=== PATIENT | female | born 1965 | race Caucasian/White ===

== ENCOUNTER 2020-09-09 07:34 | Day surgery (SDC) | payer BC ==
[~2020-09-09] VITALS: Ht 154.9 cm; Wt 60.3 kg
[~2020-09-09 07:34] MED LIST: CALCIUM 500 MG1 EAC1 PO; MULTI VITAMIN1 EACH PO
--- NOTE | 2020-09-09 09:09 | NUR ---
09/09/20 0909 Clare Villarreal 0905 PATIENT ARRIVES TO PACU AWAKE BUT VERY DROWSY. SLEEPING WHEN NOT STIMULATED. RESP EVEN AND UNLABORED, OXYGEN OFF ON ARRIVAL. ROOM AIR SATS >93%. PATIENT DENIES PAIN OR NAUSEA WHEN AWAKE.
--- NOTE | 2020-09-10 07:43 | OR ---
[facility] [address], [place] [address] Signed DATE OF OPERATION: 09/09/2020 SURGEON: Jewel Rodriguez MD PREOPERATIVE DIAGNOSIS: Screening. POSTOPERATIVE DIAGNOSES: 1. 3 mm polyp, base of cecum. 2. 3 mm polyp, proximal hepatic flexure. 3. Several diverticula, right colon. 4. Minimal to moderate diverticula left colon. 5. Minimal internal hemorrhoids. PROCEDURE: Colonoscopy with hot biopsy. ESTIMATED BLOOD LOSS: None. INDICATIONS: Annetta is a 55-year-old female asked to see me for her initial screening colonoscopy. She has no lower GI complaints. There is no family history of colon cancer or polyps. In the office, I gave her a pamphlet on colonoscopy and we looked at that together along with the risks including, but not limited to gas bloating, crampy abdominal pain, bleeding, perforation requiring surgery, and missed diagnosis. We also reviewed the need for IV conscious sedation. She had expressed understanding and wished to proceed. PROCEDURE NOTE: Annetta was taken into our endoscopy suite and placed in the left lateral decubitus position. She was given IV sedation with 8 mg of Versed and 150 mcg of fentanyl. A digital rectal exam was performed and this was unremarkable. The adult colonoscope was introduced and advanced under direct visualization of camera without difficulty. It took just a few minutes to get through her somewhat long redundant sigmoid colon. It took a little extra sedation and a little abdominal compression, but eventually it went quite nicely. Prep was quite excellent. We could easily see the appendiceal orifice and the ileocecal valve. At the base of the cecum as well as the proximal hepatic flexure were too small polyps, they were easily removed with the help of hot biopsy forceps. We saw just a few diverticula in the right colon. They were moderate in size. She has diverticula in the left and sigmoid colon, they were moderate in size, few to Electronically Signed By: JEWEL RODRIGUEZ MD 09/10/20 0743 PATIENT NAME: ANNETTA JENKINS OPERATIVE REPORT DATE OF : 65 REPORT #: [id number] PHYSICIAN: JEWEL RODRIGUEZ MD PCP: MARIA ALEJANDRA PALACIOS NP REPORT IS CONFIDENTIAL AND NOT TO BE RELEASED WITHOUT AUTHORIZATION [facility] [address] [place], [place] [address] Signed moderate in number. The rectum itself was unremarkable. Upon retroflexion of scope, she has very minimal internal hemorrhoid tissue. After this, the gas was suctioned out and the colonoscope removed. Annetta tolerated procedure quite well. RECOMMENDATIONS: Annetta will return to my office in 7 to 14 days to review her results. MD GEORGI Rodriguez/[place]STONL /[id number] cc: MD Jewel Corral MD Copies: JEWEL RODRIGUEZ MD ~ Electronically Signed By: JEWEL RODRIGUEZ MD 09/10/20 0743 PATIENT NAME: ANNETTA JENKINS OPERATIVE REPORT DATE OF : 65 REPORT #: [id number] PHYSICIAN: JEWEL RODRIGUEZ MD PCP: MARIA ALEJANDRA PALACIOS NP REPORT IS CONFIDENTIAL AND NOT TO BE RELEASED WITHOUT AUTHORIZATION
== END 2020-09-09 09:40 | disposition home or self-care (01) ==
LOC: OPS 07:34 → DS 07:34 → OPS 09:00 → DS 09:00 → OPS 09:40
PROVIDERS: ATTEND Colon & Rectal Surgery
PROC: 0DBL8ZX Excision of Transverse Colon, Via Natural or Artificial Opening Endoscopic, Diagnostic (ICD-10-PCS; principal; 2020-09-09 09:00)
DX: Z12.11 Encounter for screening for malignant neoplasm of colon (principal); D12.0 Benign neoplasm of cecum; D12.3 Benign neoplasm of transverse colon; Q43.8 Other specified congenital malformations of intestine; K64.8 Other hemorrhoids; K57.30 Diverticulosis of large intestine without perforation or abscess without bleeding; Z88.2 Allergy status to sulfonamides
CPT/HCPCS: 99153; G0500; J2250; J3010